=== PATIENT | female | born 1995 | race Two or more races ===

== ENCOUNTER 2022-02-06 06:15 | Inpatient (IN) | payer OTHER ==
[~2022-02-06] VITALS: Ht 154.9 cm; Wt 3.6 kg
[2022-02-06] MEDS ORDERED: PRENATABS RX T1 EACH PO (08:09)
[2022-02-06] MEDS ORDERED: FOLIC ACID0.8 M1 PO (08:10)
== END 2022-02-09 13:16 | disposition home or self-care (01) | DRG 788 ==
LOC: OB/GYN 06:15 → LDR 06:15 → O/R 02-07 14:10 → OB/GYN 02-07 15:52
PROVIDERS: ADMIT Obstetrics & Gynecology Obstetrics; ATTEND Obstetrics & Gynecology Obstetrics
PROC: 4A1HXCZ Monitoring of Products of Conception, Cardiac Rate, External Approach (ICD-10-PCS; 2022-02-06)
PROC: 10D00Z1 Extraction of Products of Conception, Low, Open Approach (ICD-10-PCS; principal; 2022-02-07 13:00)
DX: O82 Encounter for cesarean delivery without indication (principal); Z3A.39 39 weeks gestation of pregnancy; Z37.0 Single live birth; Z20.822 Contact with and (suspected) exposure to COVID-19